=== PATIENT | female | born 1970 | race Caucasian/White ===

== ENCOUNTER → 2019-02-18 08:18 | Outpatient (CLI) | payer SELFPAY | PROVIDERS: Visit Provider Physician Assistant | DX: N39.0 Urinary tract infection, site not specified (principal); R31.9 Hematuria, unspecified | CPT/HCPCS: 87077; 87086; 87186 ==

== ENCOUNTER → 2023-10-29 16:19 | Outpatient (CLI) | payer OTHER, SELFPAY ==
[2023-10-29 17:47] LABS: Alanine Aminotransferase 22 IU/L (<35); Albumin 4.5 g/dL (3.5-5.0); Albumin Globulin Ratio 1.5 (1.0-2.8); Alkaline Phosphatase 41 U/L (38-126); Aspartate Aminotransferase 26 IU/L (14-36); BUN Creatinine Ratio 20.7 (6-22); Bilirubin Total 0.4 mg/dL (0.2-1.3); Blood Urea Nitrogen 17 mg/dL (7-17); Calcium 9.4 mg/dL (8.4-10.2); Carbon Dioxide 27 mmol/L (22-32); Chloride 103 mmol/L (98-107); Cholesterol 246 mg/dL (140-199); Estimated Glomerular Filt Rate > 60 mL/min (>60); Glucose 92 mg/dL (70-100); HDL Cholesterol 107 mg/dL (40-60); HEMOLYSIS < 15 (0-50); LDL Cholesterol Calculated 106 mg/dL (<100); Potassium 4.2 mmol/L (3.4-5.1); Sodium 138 mmol/L (137-145); Total Protein 7.5 g/dL (6.3-8.2); Triglycerides 166 mg/dL (35-150)
[2023-10-29 17:57] LABS: Free T4, Direct Thyroxine 0.96 ng/dL (0.78-2.19)
[2023-10-29 18:11] LABS: Thyroid Stimulating Hormone 1.22 uIU/mL (0.47-4.68)
== END ==
LOC: LAB 16:22
PROVIDERS: Referring Provider Registered Nurse; Visit Provider Registered Nurse
DX: Z13.220 Encounter for screening for lipoid disorders (principal); R63.5 Abnormal weight gain
CPT/HCPCS: 36415; 80053; 80061; 84439; 84443

== ENCOUNTER → 2024-03-05 08:45 | Outpatient (CLI) | payer OTHER, SELFPAY ==
--- NOTE | 2024-03-05 08:47 | DI.MG.S_ITS ---
BILATERAL DIGITAL SCREENING MAMMOGRAM 3D/2D WITH CAD: 03/05/2024 CLINICAL: Routine screening. Comparison is made to exams dated: 08/23/2015 mammogram and 01/05/2006 mammogram - [facility]. Both breasts are heterogeneously dense, which may obscure small masses (category c / 51-75% glandular tissue). Current study was also evaluated with a Computer Aided Detection (CAD) system. No significant masses, calcifications, or other findings are seen in either breast. There has been no significant interval change. IMPRESSION: NEGATIVE There is no mammographic evidence of malignancy. A 1 year screening mammogram is recommended. Based on the Tyrer Cuzick model (a risk assessment model) the patient's lifetime risk is 12.7% and her 10 year risk is 4.2%. According to the ACR, ACS, and NCCN guidelines, an annual breast MRI exam along with mammogram is recommended if the patient's lifetime risk is 20% or greater. This exam was interpreted at Station ID: [id number]. NOTE: For mammograms, a report in lay terms will be sent to the patient. Approximately 15% of breast malignancies will not be visualized mammographically. In the management of a palpable breast mass, a negative mammogram must not discourage biopsy of a clinically suspicious lesion. Electronically Signed By: Renzo ritchie/osmar:03/07/2024 15:47:16 letter sent: Normal Exam ACR BI-RADS Category 1: Negative [id number]
== END ==
PROVIDERS: Referring Provider Registered Nurse; Visit Provider Registered Nurse
DX: Z12.31 Encounter for screening mammogram for malignant neoplasm of breast (principal); R92.333 Mammographic heterogeneous density, bilateral breasts
CPT/HCPCS: 77063; 77067

== ENCOUNTER 2025-01-23 12:12 | Day surgery (SDC) | payer OTHER, SELFPAY ==
[2025-01-23 13:30] VITALS: BP 134/80; PULSE 67; RESP 20; TEMP 36.2; O2SAT 99
[2025-01-23] MEDS: LACTATED RINGERS 1,000 ML 42 ML IV (13:34)
--- NOTE | 2025-01-23 13:34 | P.OP.COLON_ITS ---
Operative Date/Time/Diagnoses Date of procedure: 01/23/25 Time of procedure: 13:58 Pre-op diagnosis: See indication and findings Post-op diagnosis: same Procedure & Clinicians Study performed: Colonoscopy Same procedure as scheduled: Yes Indications: For screening colonoscopy Surgeon: Katya Puentes Procedure Notes Procedure in detail: After informed consent was obtained the patient was placed in left lateral decubitus position. The video colonoscope was placed into the rectum slowly advanced cecum. Preparation was fair only.. On slow withdrawal mucosa was carefully examined. The scope was removed. The patient tolerated procedure w ell. Blood loss none Complications none Sedation mac Findings 1. 4 mm cecal polyp Jumbo biopsied and removed completely 2. Scattered pancolonic diverticulosis 3. Otherwise negative colonoscopy to cecum Patient had a relatively poor prep and between this and finding a polyp I believe he should have follow-up colonoscopy within 3 years
--- NOTE | 2025-01-23 13:35 | PM.HP.IH.1 ---
History of Present Illness History of Present Illness Date Patient Seen: 01/23/25 Chief complaint: Colonoscopy Narrative: For screening colonoscopy [facility] Surgical History (Updated 01/05/18 @ 05:10 by Conversion Provider) History of third molar tooth extraction Status post dilation and curettage Family History (Updated 05/15/15 @ 00:00 by Conversion Provider) Father Cancer Social History Smoking Status: Never smoker alcohol intake: current Meds Home Medications and Allergies Home Medications Medication Instructions Recorded Confirmed Type alprazolam 1 mg tablet (Xanax) 1 mg PO HSP PRN #30 tabs 07/31/17 Rx cyanocobalamin (vitamin B-12) 1,000 mcg PO ##0 07/31/17 History 1,000 mcg tablet,extended release CMP Estriol 0.1% Vaginal Cream 1 ea topical 3XW #30 grams 02/17/22 Rx Estriol Vaginal Pearls 0.5mg 1 ea vaginal 3XW #40 ea 02/17/22 Rx Allergies Allergy/AdvReac Type Severity Reaction Status Date / Time lidocaine [LIDOCAINE] Allergy Severe TINGLING Verified 01/23/25 13:25 AROUND LIPS, DIZZINESS Exam Vital Signs (past 8 hours): - 01/23/25 13:30 Temperature 97.2 F L Pulse Rate 67 Respiratory Rate 20 Blood Pressure 134/80 Pulse Oximetry 99 Oxygen Delivery Method Room Air Oxygen Delivery Method Room Air Narrative Exam Narrative: Oropharynx free of lesions Chest clear to auscultation percussion Cardiac exam reveals no S3 or murmur Assessment & Plan Assessment & Plan narrative: For screening colonoscopy. Risks, benefits, alternatives have been explained. Time-Based Coding :: [TOTAL MINUTES] spent with patient and on the chart (including review of chart, obtaining history, exam, reviewing outside data, placing orders, documenting exam and treatment plan, and counseling patient) on [DATE]. PROFEE Vice President Of [employer]ing Services Document charge(s): No
--- NOTE | 2025-01-23 14:17 | P.HP_ITS ---
History of Present Illness History of Present Illness Date Patient Seen: 01/23/25 Chief complaint: Colonoscopy Narrative: For screening colonoscopy, 1st 1 [facility] Surgical History (Updated 01/05/18 @ 05:10 by Conversion Provider) History of third molar tooth extraction Status post dilation and curettage Family History (Updated 05/15/15 @ 00:00 by Conversion Provider) Father Cancer Social History Smoking Status: Never smoker alcohol intake: current Meds Home Medications and Allergies Home Medications Medication Instructions Recorded Confirmed Type alprazolam 1 mg tablet (Xanax) 1 mg PO HSP PRN #30 tabs 07/31/17 Rx cyanocobalamin (vitamin B-12) 1,000 mcg PO ##0 07/31/17 History 1,000 mcg tablet,extended release CMP Estriol 0.1% Vaginal Cream 1 ea topical 3XW #30 grams 02/17/22 Rx Estriol Vaginal Pearls 0.5mg 1 ea vaginal 3XW #40 ea 02/17/22 Rx Allergies Allergy/AdvReac Type Severity Reaction Status Date / Time lidocaine [LIDOCAINE] Allergy Severe TINGLING Verified 01/23/25 13:25 AROUND LIPS, DIZZINESS Exam Vital Signs (past 8 hours): - 01/23/25 13:30 Temperature 97.2 F L Pulse Rate 67 Respiratory Rate 20 Blood Pressure 134/80 Pulse Oximetry 99 Oxygen Delivery Method Room Air Oxygen Delivery Method Room Air Narrative Exam Narrative: Oropharynx free of lesions Chest clear to auscultation percussion Cardiac exam reveals no S3 or murmur Assessment & Plan Assessment & Plan narrative: For screening colonoscopy. Risks, benefits, alternatives have been explained. Time-Based Coding :: [TOTAL MINUTES] spent with patient and on the chart (including review of chart, obtaining history, exam, reviewing outside data, placing orders, documenting exam and treatment plan, and counseling patient) on [DATE]. PROFEE Project Specialist Document charge(s): No
--- NOTE | 2025-01-23 14:18 | PM.OP.COLON ---
Operative Date/Time/Diagnoses Date of procedure: 01/23/25 Time of procedure: 14:36 Pre-op diagnosis: See indication and findings Post-op diagnosis: same Procedure & Clinicians Study performed: Colonoscopy Same procedure as scheduled: Yes Indications: First screening Surgeon: Katya Puentes Procedure Notes Procedure in detail: After informed consent was obtained the patient was placed in left lateral decubitus position. The video colonoscope was introduced the rectum slowly advanced to the cecum. On slow withdrawal mucosa was carefully examined. The scope was removed. The patient tolerated procedure well. Blood loss none Complications none Sedation mac Findings 1. Normal colonoscopy to cecum Patient should have follow-up colonoscopy in 10 years
[2025-01-23 14:38] VITALS: BP 88/61; PULSE 88; RESP 16; TEMP 36.5; O2SAT 96
[2025-01-23 14:43] VITALS: BP 90/59; PULSE 79; RESP 16; O2SAT 97
== END 2025-01-23 15:13 | disposition home or self-care (01) ==
PROVIDERS: PCP Registered Nurse; Referring Provider Internal Medicine Gastroenterology; Visit Provider Internal Medicine Gastroenterology
PROC: 0DJD8ZZ Inspection of Lower Intestinal Tract, Via Natural or Artificial Opening Endoscopic (ICD-10-PCS; CPT 45378; principal; 2025-01-23 13:30)
DX: Z12.11 Encounter for screening for malignant neoplasm of colon (principal)
CPT/HCPCS: 45378; J2405; J2704